=== PATIENT | male | born 1970 | race Caucasian/White ===

== ENCOUNTER 2017-01-21 11:18 | Observation (INO) | payer MEDICAID, OTHER ==
[~2017-01-21] VITALS: Ht 172.7 cm; Wt 77.1 kg
[2017-01-21] MEDS ORDERED: ASPIRIN 325 MG TAB PO STA (12:48)
[2017-01-21] MEDS ORDERED: NITROGLYCERIN (SL) 0.4 MG TAB SL PRN (13:00)
[2017-01-21 13:08] LABS: ADD SCAN DIFF NO
[2017-01-21 13:13] LABS: BASOPHIL # 0.1 10^3/ul (0.0-0.1); EOSINOPHILS # 0.3 10^3/ul (0.0-0.5); EOSINOPHILS % 4.7 % (0.0-7.0); HEMATOCRIT 44.9 % (42.0-52.0); HEMOGLOBIN 14.3 g/dl (14.0-18.0); LYMPHOCYTES # 1.6 10^3/ul (0.8-2.9); LYMPHOCYTES % 25.8 % (15.0-51.0); MEAN CORPUSCULAR HEMOGLOBIN 29.1 pg (29.0-33.0); MEAN CORPUSCULAR HGB CONC 31.8 g/dl (32.0-37.0); MEAN CORPUSCULAR VOLUME 91.3 fl (82.0-101.0); MEAN PLATELET VOLUME 11.2 fl (7.4-10.4); MONOCYTE # 0.5 10^3/ul (0.3-0.9); MONOCYTES % 8.4 % (0.0-11.0); NEUTROPHIL # 3.7 10^3/ul (1.6-7.5); NEUTROPHILS % 59.6 % (39.0-77.0); PLATELET COUNT 186 10^3/UL (140-415); RED BLOOD COUNT 4.92 10^6/ul (4.70-6.10); RED CELL DISTRIBUTION WIDTH 12.5 % (11.5-14.5); WHITE BLOOD COUNT 6.2 10^3/ul (4.8-10.8)
[2017-01-21 13:22] LABS: INR 0.94; PROTIME 12.6 Sec (12.2-14.2)
[2017-01-21 13:23] LABS: PARTIAL THROMBOPLASTIN TIME 30.8 Sec (25.0-35.0)
[2017-01-21 13:24] LABS: ALANINE AMINOTRANSFERASE 37 IU/L (13-69); ALBUMIN 4.8 g/dl (3.3-4.9); ALKALINE PHOSPHATASE 60 IU/L (42-121); ANION GAP 11 (8-16); ASPARTATE AMINO TRANSFERASE 26 IU/L (15-46); BILIRUBIN,INDIRECT 0.4 mg/dl (0-1.1); BILIRUBIN,TOTAL 0.4 mg/dl (0.2-1.3); BLOOD UREA NITROGEN 12 mg/dl (7-20); CALCIUM 9.8 mg/dl (8.4-10.2); CARBON DIOXIDE 30 mmol/L (21-31); CHLORIDE 103 mmol/L (97-110); CREATINE KINASE 119 IU/L (23-200); CREATININE 1.06 mg/dl (0.61-1.24); GLUCOSE 100 mg/dl (70-220); POTASSIUM 4.2 mmol/L (3.5-5.1); SODIUM 140 mmol/L (135-144)
[2017-01-21 13:36] LABS: B-TYPE NATRIURETIC PEPTIDE 15 PG/ML (0-125)
[2017-01-21 13:39] LABS: CK-MB 0.84 ng/ml (0.0-2.4); TROPONIN-I < 0.012 ng/ml (0.00-0.12)
--- NOTE | 2017-01-21 13:40 | RADRPT ---
PROCEDURE: Chest Radiograph. CLINICAL INDICATION: Chest pain. Shortness of breath. TECHNIQUE: Single frontal chest radiograph. COMPARISON: None available FINDINGS: The cardiomediastinal silhouette is within normal limits. No infiltrate or effusion is seen. Th e bones are intact. IMPRESSION: 1. Unremarkable chest radiograph. RPTAT: KK .Blayne Jensen MD, MD Date Time Electronically viewed and signed by .Blayne Jensen MD, on 01/21/2017 13:39 .B/
[2017-01-21 13:45] LABS: D-DIMER < 220.00 ng/ml (<460)
[2017-01-21] MEDS ORDERED: SOD CHLORIDE 0.9% 100 ML ONE (14:07)
[2017-01-21] MEDS ORDERED: IOHEXOL 100 ML ONE (14:07)
--- NOTE | 2017-01-21 14:46 | RADRPT ---
PROCEDURE: US DVT. CLINICAL INDICATION: Bilateral lower extremity pain and swelling. TECHNIQUE: Multiple longitudinal and transverse images of the bilateral lower extremity veins were obtained with ponce scale and color Doppler imaging. 2D grayscale measurements with compression, co katie Doppler flow, and augmentation was performed. The calf veins were interrogated as well. COMPARISON: No prior studies are available for comparison. FINDINGS: The bilateral common femoral, superficial femoral and popliteal veins are normally compressible thro ughout. Color flow demonstrates normal filling of the vessel. Normal waveforms are visualized and there is normal response to augmentation. The calf veins are visualized and are equally unremarkabl e. IMPRESSION: 1. No evidence of a deep vein thrombosis involving either lower extremity. RPTAT: QQ .Allie Duke MD, MD Date Time Electronically viewed and signed by .Allie Duke MD, MD on 01/21/2017 14:45 .N/
--- NOTE | 2017-01-21 14:51 | RADRPT ---
PROCEDURE: CTA Chest and pulmonary angiogram. CLINICAL INDICATION: Chest pain and shortness of breath. TECHNIQUE: CT scan of the chest and CT pulmonary angiogram was performed on a multidetector high-r esolution CT scanner. High-resolution thin slice coronal and sagittal imaging was obtained from the axial source images. 3-D volumetric rendered post processing was performed as well. The patient w as examined following the uncomplicated intravenous administration of 90 cc of Omnipaque-350. The i mages were reviewed on a PACS workstation. The total exam CTDI equals 16.9, 10.74 see and the total exam DLP equals 401.85 mGy-cm. COMPARISON: Chest radiograph of the same day. FINDINGS: CT chest: No focal opacification, effusion or pneumothorax is seen. The central tracheobronchial tree is ernestina r. Calcified hilar and mediastinal prevascular lymph nodes are noted which likely present sequela of pr ior granulomatous disease. No mediastinal mass is noted. The vascular structures of the mediastinum are normal in course and caliber. The heart size is normal without pericardial thickening or effusi on. The axillary, subpectoral, and supraclavicular regions are unremarkable. Imaging obtained through the upper abdomen demonstrate mild splenomegaly, otherwise no acute abnorma lity is noted. Small calcified foci are noted in the spleen. The osseous structures are remarkable for degenerative spondylosis of the spine. CT pulmonary angiogram: No filling defect is present to suggest pulmonary embolism. The pulmonary arteries are normal in alecia iber and morphology. IMPRESSION: 1. No evidence for pulmonary embolism. 2. Calcified hilar and mediastinal lymph nodes as well as small splenic calcifications and mild spl enomegaly which likely present sequela of prior granulomatous disease. 3. Otherwise no acute intrathoracic abnormality. RPTAT: QQ .Allie Duke MD, MD Date Time Electronically viewed and signed by .Allie Duke MD, MD on 01/21/2017 14:51 .N/
[2017-01-21] MEDS ORDERED: ONDANSETRON 4 MG INJ IV PRN ×2 (15:30→17:30)
[2017-01-21] MEDS ORDERED: ACETAMINOPHEN 325 MG TAB PO PRN ×2 (15:30→17:30)
--- NOTE | 2017-01-21 15:55 | ERA ---
ER Documentation Chief Complaint Date/Time DATE: 01/21/17 TIME: 15:50 Chief Complaint Complains of chest pain x 2 days HPI This is a very pleasant 46-year-old male with no past medical history that presents to the emergency department complaining of intermittent chest pain that is progressively worsened over the past 7 days. The patient states that the pain is a deep ache localized to the left chest wall with intermittent pinching-like sensation. He indicates that 24 hours prior to arrival the pain began to radiate to his left and right upper extremity but no involvement of his neck back or jaw. The patient indicates that 2 weeks ago he returned from a long flight in [place] that was roughly a 20 hour flight. He indicated he also had intermittent pain of his right calf that is present at rest and not exacerbated with ambulation and denies any recent trauma to his right lower extremity. He has had no fevers or shaking or chills. He has had intermittent shortness of breath at rest. He denies any swelling of his lower extremities. He states he does not smoke tobacco nor does he utilize any illicit drugs. He has no family history of coronary artery disease in his first-degree relatives less than 55 years of age. He has never had any similar pain in the past. He did not take any analgesic medication prior to arrival. ROS All systems reviewed and are negative except as per history of present illness. Medications Home Meds No Active Prescriptions or Reported Meds Allergies Allergies: Coded Allergies: No Known Allergy (Unverified , 01/21/17) PMhx/Soc Medical and Surgical Hx: pt denies Medical Hx, pt denies Surgical Hx Hx Alcohol Use: No Hx Substance Use: No Hx Tobacco Use: No Smoking Status: Current every day smoker Physical Exam Vitals Vital Signs Date Time Temp Pulse Resp B/P Pulse Ox O2 Delivery O2 Flow Rate FiO2 01/21/17 13:05 70 18 128/68 99 Room Air 01/21/17 11:23 98.3 75 20 132/70 98 Physical Exam Constitutional:Well-developed. Well-nourished. HEENT:Normocephalic. Atraumatic.Pupils were equal round reactive to light. Moist mucous membranes.No tonsillar exudates. Neck: No nuchal rigidity. No lymphadenopathy. No posterior cervical spine tenderness or step-offs. Respiratory: Not using accessory muscles of respiration.Lungs were clear to auscultation bilaterally. No rhonchi. No rales. No wheezing. Cardiovascular: Regular rate regular rhythm.No murmurs. No rubs were appreciated.S1, S2 normal. Distal pulses are palpable 2+ bilaterally. GI: Abdomen was soft. Nontender. Non Distended. No pulsatile abdominal masses or bruits. No rebound. No guarding. Bowel sounds were present and normal. Muscle skeletal: Full range of motion of both the upper and lower extremities bilaterally.Normal muscle tone. Tenderness of the right calf with no asymmetrical swelling. Homans sign negative bilaterally. Skin: No petechia, no purpura. No lesions on the palms or the soles of the feet. No maculopapular rash. NEURO: Patient was alert, awake, orientated x3.No facial droop. Gait observed and normal with no ataxia.Speech had regular rate and rhythm. No focal neurological deficits. Result Diagram: 01/21/17 1250 01/21/17 1250 Results 24 hrs Laboratory Tests Test 01/21/17 12:50 White Blood Count 6.210^3/ul Red Blood Count 4.9210^6/ul Hemoglobin 14.3g/dl Hematocrit 44.9% Mean Corpuscular Volume 91.3fl Mean Corpuscular Hemoglobin 29.1pg Mean Corpuscular Hemoglobin Concent 31.8g/dl Red Cell Distribution Width 12.5% Platelet Count 32932^3/UL Mean Platelet Volume 11.2fl Neutrophils % 59.6% Lymphocytes % 25.8% Monocytes % 8.4% Eosinophils % 4.7% Basophils % 1.0% Nucleated Red Blood Cells % 0.0/100WBC Neutrophils # 3.710^3/ul Lymphocytes # 1.610^3/ul Monocytes # 0.510^3/ul Eosinophils # 0.310^3/ul Basophils # 0.110^3/ul Nucleated Red Blood Cells # 0.010^3/ul Prothrombin Time 12.6Sec Prothrombin Time Ratio 1.0 INR International Normalized Ratio 0.94 Activated Partial Thromboplast Time 30.8Sec D-Dimer < 220.00ng/ml D-Dimer Comment Sodium Level 140mmol/L Potassium Level 4.2mmol/L Chloride Level 103mmol/L Carbon Dioxide Level 30mmol/L Anion Gap 11 Blood Urea Nitrogen 12mg/dl Creatinine 1.06mg/dl Glucose Level 100mg/dl Calcium Level 9.8mg/dl Total Bilirubin 0.4mg/dl Direct Bilirubin 0.00mg/dl Indirect Bilirubin 0.4mg/dl Aspartate Amino Transf (AST/SGOT) 26IU/L Alanine Aminotransferase (ALT/SGPT) 37IU/L Alkaline Phosphatase 60IU/L Creatine Kinase 119IU/L Creatine Kinase Index 0.7 Creatinine Kinase MB (Mass) 0.84ng/ml Troponin I < 0.012ng/ml B-Type Natriuretic Peptide 15PG/ML Total Protein 8.0g/dl Albumin 4.8g/dl Globulin 3.20g/dl Albumin/Globulin Ratio 1.50 Lipase 231U/L Current Medications Medications (Trade) Dose Ordered Sig/Maximiliano Route PRN Reason Start Time Stop Time Status Last Admin Dose Admin Aspirin (Aspirin) 325 mg ONCE STAT PO 01/21/17 12:48 01/21/17 12:50 DC 01/21/17 13:12 Nitroglycerin (Nitroglycerin (Sl Tab) 0.4 Mg) 1 tab Q5M UP TO 3 DOSES PRN SL CHEST PAIN 01/21/17 13:00 01/21/17 13:13 IV Flush 10 ml 10 ml STK-MED ONCE .ROUTE 01/21/17 14:07 01/21/17 14:08 DC 01/21/17 14:21 Sodium Chloride 100 ml @ ud STK-MED ONCE .ROUTE 01/21/17 14:07 01/21/17 14:08 DC 01/21/17 14:21 Iohexol (Omnipaque) 100 ml @ ud STK-MED ONCE .ROUTE 01/21/17 14:07 01/21/17 14:08 DC 01/21/17 14:22 Ondansetron HCl (Zofran Inj) 4 mg ER BRIDGE PRN IV NAUSEA AND/OR VOMITING 01/21/17 15:30 01/22/17 15:29 Acetaminophen (Tylenol Tab) 650 mg ER BRIDGE PRN PO MILD PAIN/FEVER 01/21/17 15:30 01/22/17 15:29 Procedures/MDM The patient presented to the emergency department with chest pain. My clinical evaluation and workup was to distinguish minor causes of chest pain from acute life threatening conditions such as myocardial infarction, pulmonary embolism, aortic dissection, esophageal rupture, cardiac tamponade. The patient was placed on a vegetable thinner and continuous pulse oximetry. IV access established by nursing staff. Patient was given 325 mg of aspirin p.o. 12 Lead EKG tracing ordered and reviewed by myself showed at 1126: Normal sinus rhythm of 68 bpm and no arrhythmia. VT interval normal. Inverted P waves in the inferior lead to 3 and aVF QRS duration normal. No ST segment elevation No ST segment depression. Q waves present in the inferior lead III and aVF 12 Lead EKG tracing ordered and reviewed by myself showed which was repeated at 1228: Normal sinus rhythm of 70 bpm and no arrhythmia. VT interval normal. P waves were no longer inverted. Q waves present in lead III and aVF QRS duration normal. No ST segment elevation No ST segment depression. No changes consistent with acute ischemia. I obtain venous duplex ultrasounds of the bilateral lower extremities which showed no evidence of a deep vein thrombosis. Given that the patient is a high pretest probability according to the well's criteria for pulmonary embolism, given his recent flight with prolonged immobilization and shortness of breath, obtained a CT scan of the chest which showed no evidence of a pulmonary embolism or aortic dissection The patient will be admitted for observation serious condition in order to further evaluate the etiology of the patient's chest pain. She will go to the hospitalist Dr. Haney. Departure Diagnosis: Primary Impression: Chest pain Qualified Code: R07.9 - Chest pain, unspecified type Additional Impression: Shortness of breath Condition: AKRRIE Jacobson January 21, 2017 15:55
[2017-01-21] MEDS ORDERED: MAGNESIUM HYDROXIDE 30ML CUP PO PRN (17:30)
[2017-01-21] MEDS ORDERED: LORAZEPAM 2 MG INJ IV PRN (17:30)
[2017-01-21] MEDS ORDERED: morphine 2 MG INJ IV PRN (17:30)
[2017-01-21] MEDS ORDERED: BISACODYL (EC) 5 MG TAB PO PRN (17:30)
[2017-01-21] MEDS ORDERED: NACL 0.9% 3 ML SYG IV SCH (17:30)
[2017-01-21] MEDS ORDERED: HYDROCODONE/APAP (5/325) TAB PO PRN (17:30)
--- NOTE | 2017-01-21 18:13 | HP ---
DATE OF ADMISSION: 01/21/2017 TIME OF EVALUATION: 1700. REASON FOR ADMISSION: Chest pain and dyspnea. CONSULTANTS: Dr. Brett East, Cardiology. HISTORY OF PRESENT ILLNESS: This is a 46-year-old male who denies any significant past medical history who presented to the emergency department complaining of chest pain that has been progressively getting worse over the past 2 to 3 days. As per the patient, he started having chest pain on , 01/17/2017, that has been progressively getting worse. The patient verbalized his chest pain as substernal, but occurring inside his chest with pain in bilateral shoulders and some associated dyspnea. The patient denied any associated nausea, vomiting, or diaphoresis. The patient was also complaining of occasional dyspnea. The patient denied any cough. He denied any paroxysmal nocturnal dyspnea or exertional dyspnea. The patient denied any alleviating or exacerbating factors for his chest pain. The patient recently flew to [place]. The patient was also complaining of right calf pain. The patient denied any prior history of heart disease. The patient has no family history of early heart disease. In the emergency room, the patient underwent extensive workup including a CT angiogram of the chest that was negative for any pulmonary embolism. The patient also had bilateral lower extremity venous Doppler study that was negative for any DVT. He was treated with a single dose of aspirin in the emergency room. PAST MEDICAL HISTORY: Denies. PAST SURGICAL HISTORY: Biopsy in the neck area when he was 9 years old. SOCIAL HISTORY: The patient lives at home. 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 Denies any history of tobacco or illicit drug use. (The ER physician 's notes say the patient is a current every day smoker). Occasional drinker. FAMILY HISTORY: Positive for heart disease, but not early heart disease. REVIEW OF SYSTEMS: A 12-point review of systems were made and the review of systems are negative other than what is mentioned in history of present illness. PHYSICAL EXAMINATION: VITAL SIGNS: Temperature 98.3, pulse rate 77, respiratory rate 19, blood pressure 102/68, oxygen saturation 96% on room air. GENERAL: This is a 46-year-old male lying in bed in no apparent distress. HEENT: Head normocephalic and atraumatic. Eyes: Anicteric sclerae. Conjunctivae clear. ENT: Nasal septum is midline. Oral mucosa is moist. NECK: Supple. No JVD noticed. RESPIRATORY: Bilaterally clear to auscultation. No adventitious breath sounds. No use of accessory muscles of respiration. CARDIAC: Regular rate and rhythm. S1, S2 heard. Chest pain not reproducible. ABDOMEN: Soft, nontender, and nondistended. Bowel sounds positive in all 4 quadrants. GENITOURINARY: Deferred. EXTREMITIES: No cyanosis, no clubbing, no edema. Peripheral pulses are palpable. NEUROLOGIC: The patient is awake, alert, and oriented. Cranial nerves are grossly intact. LABORATORY AND DIAGNOSTIC DATA: WBC 6.2, hemoglobin 14.3, hematocrit 44.9, platelet count 186. Sodium 140, potassium 4.2, chloride 103, carbon dioxide 30 , anion gap 11, BUN 12, creatinine 1.06, glucose 100, calcium 9.8. Total bilirubin 0.4, AST 26, ALT 30, alkaline phosphatase 60. Troponin I less than 0.012. PT 12.6, INR 0.94, aPTT 30.8. D-dimer less than 220. Chest x-ray: Unremarkable chest radiograph. Bilateral lower extremity venous Doppler study: Negative for any DVT. CT angiogram of the chest: No evidence for pulmonary embolism. Calcified hilar and mediastinal lymph nodes as well as small splenic calcifications and mild splenomegaly. This likely represents sequelae of prior granulomatous disease. Otherwise, no acute intrathoracic abnormality. IMPRESSION: This is a 46-year-old male who came to the emergency room with chest pain that has been going on for the past few days and has been getting worse who will be admitted here for further evaluation. ASSESSMENT AND PLAN: 1. Chest pain. To rule out acute coronary syndrome. The patient's chest pain sounds atypical. He has been ruled out for any underlying pulmonary embolism, provided the history of recent long flight. The patient will be evaluated by cardiology and he will be evaluated for any underlying acute coronary syndrome. A 2D echocardiogram will be obtained. Serial troponins will be obtained. Plan. The patient will be admitted to inpatient telemetry floor. The patient will be started on a regular diet. Activities will be as tolerated. The patient will be started on deep vein thrombosis prophylaxis and gastrointestinal prophylaxis. The patient will remain a FULL CODE. The rest of the patient's management will be based on the clinical course, the results of diagnostic studies, and inputs from consultants. Based on the patient's clinical presentation, he most probably requires at least 1 midnight's stay for further management and evaluation of his clinical presentation. The case and management of this patient was fully discussed with Dr. Dee. ANGEL DEE MD, AM/NATALIIA Conf#: [id number] DID#: [id number] MTDD
[2017-01-21 18:30] VITALS: TEMP 98.6
--- NOTE | 2017-01-21 18:36 | CONS ---
DATE OF ADMISSION: 01/21/2017 DATE OF CONSULTATION: 01/21/2017 REASON FOR CONSULTATION: Chest pain. CHIEF COMPLAINT: Chest pain. HISTORY OF PRESENT ILLNESS: Thank you for this referral. History obtained from the patient, julia bocanegra and review of the chart. This is a pleasant 46-year-old gentleman with no past cardiac history who presented ____. The patient has had chest pain, left-sided, over the past week. He could not explain ____. He said it started a few days ago after he was climbing up the escalator. It is gayathri p. It has a pressure component that lasts all of time. Anywhere from 4 to 7/10 in intensity. PAST MEDICAL HISTORY: None. SOCIAL HISTORY: The patient does not smoke or drink. FAMILY HISTORY: Patient's uncles have had bypass surgery in their older age. ALLERGIES: NO REPORTED ALLERGIES. MEDICATIONS AT HOME: None. REVIEW OF SYSTEMS: He denies ____ is normally very active and exercises. PHYSICAL EXAMINATION: VITAL SIGNS: Temperature is 98, heart rate of 77, blood pressure 102/68, respiration rate of 19, sa turating 96%. HEENT: Normocephalic, atraumatic. Appears to be in no acute distress or pain. Pupils equal, round . CARDIOVASCULAR: Regular rate and rhythm, systolic murmur. PULMONARY: With no wheezes, no rhonchi. GASTROINTESTINAL: Soft, nontender. EXTREMITIES: With no significant lower extremity edema. NEUROLOGIC: Awake and alert. PSYCHIATRIC: Calm, pleasant. ELECTROCARDIOGRAM: Personally reviewed. Two EKGs, one showed probably ectopic atrial rhythm with p ossible inferior infarct, age indeterminate, showed normal sinus rhythm with possible inferior infar ct, age undetermined, on personal review. CT pulmonary angiogram was done which shows no evidence o f pulmonary embolus, calcified hilar and mediastinal ____, as well as small splenic calcifications, mild splenomegaly which likely represented prior granulomatous disease with no acute intrathoracic a bnormality. Lower extremity ultrasound showed no evidence of DVT. ASSESSMENT AND PLAN: 1. Chest pain syndrome, rule acute coronary syndrome. 2. Rule out dyslipidemia. 3. Mildly abnormal EKG, cannot rule out old inferior infarct. RECOMMENDATIONS: We will rule out myocardial infarction. Exercise stress nuclear study will be don e tomorrow to rule out nonobstructive coronary artery disease. Dictated By: KIRIT WHITE MD AV/NATALIIA Conf#: [id number] DID#: [id number] CC: ANGEL ZHONG OVEN TECHNICIAN;*EndCC*
[2017-01-21 18:40] LABS: CREATINE KINASE 95 IU/L (23-200)
[2017-01-21 18:50] LABS: CK-MB 0.61 ng/ml (0.0-2.4)
[2017-01-21 18:52] LABS: TROPONIN-I < 0.012 ng/ml (0.00-0.12)
[2017-01-21] MEDS: FAMOTIDINE 20 MG TAB PO SCH (21:42)
[2017-01-21 22:24] LABS: BARBITURATES NEGATIVE (NEGATIVE); BENZODIAZEPINES NEGATIVE (NEGATIVE); CANNABINOIDS NEGATIVE (NEGATIVE); COCAINE NEGATIVE (NEGATIVE); OPIATES NEGATIVE (NEGATIVE)
[2017-01-22] VITALS (9 sets, daily range): BP systolic 99–122; BP diastolic 56–79; PULSE 56–77; RESP 19–22; Ht 172.7 cm; Wt 77.1 kg
[2017-01-22 07:21] LABS: ADD SCAN DIFF NO
[2017-01-22 07:38] LABS: BASOPHIL # 0.1 10^3/ul (0.0-0.1); BASOPHILS % 1.2 % (0.0-2.0); EOSINOPHILS # 0.3 10^3/ul (0.0-0.5); HEMATOCRIT 42.1 % (42.0-52.0); HEMOGLOBIN 13.6 g/dl (14.0-18.0); LYMPHOCYTES # 1.6 10^3/ul (0.8-2.9); LYMPHOCYTES % 30.8 % (15.0-51.0); MEAN CORPUSCULAR HEMOGLOBIN 29.4 pg (29.0-33.0); MEAN CORPUSCULAR HGB CONC 32.3 g/dl (32.0-37.0); MEAN CORPUSCULAR VOLUME 90.9 fl (82.0-101.0); MEAN PLATELET VOLUME 11.9 fl (7.4-10.4); MONOCYTE # 0.4 10^3/ul (0.3-0.9); MONOCYTES % 8.3 % (0.0-11.0); NEUTROPHIL # 2.8 10^3/ul (1.6-7.5); NEUTROPHILS % 54.1 % (39.0-77.0); PLATELET COUNT 173 10^3/UL (140-415); RED BLOOD COUNT 4.63 10^6/ul (4.70-6.10); RED CELL DISTRIBUTION WIDTH 12.6 % (11.5-14.5); WHITE BLOOD COUNT 5.2 10^3/ul (4.8-10.8)
[2017-01-22 07:45] LABS: CHOL/HDL RATIO 3.8 RATIO; CHOLESTEROL 237 mg/dl (100-200); CREATINE KINASE 80 IU/L (23-200); HDL CHOLESTEROL 62 mg/dl (27-67); MAGNESIUM 2.1 mg/dl (1.7-2.5); PHOSPHORUS 4.1 mg/dl (2.5-4.9); TRIGLYCERIDES 127 mg/dl (0-149)
[2017-01-22 07:47] LABS: ALBUMIN 4.2 g/dl (3.3-4.9); ALBUMIN/GLOBULIN RATIO 1.68; BILIRUBIN,INDIRECT 0.6 mg/dl (0-1.1); BILIRUBIN,TOTAL 0.6 mg/dl (0.2-1.3); CALCIUM 9.7 mg/dl (8.4-10.2); CREATININE 1.12 mg/dl (0.61-1.24); POTASSIUM 4.4 mmol/L (3.5-5.1); TOTAL PROTEIN 6.7 g/dl (6.1-8.1)
[2017-01-22 08:10] LABS: CK-MB 0.52 ng/ml (0.0-2.4); TROPONIN-I < 0.012 ng/ml (0.00-0.12)
[2017-01-22] MEDS ORDERED: ASPIRIN 81 MG TAB PO SCH (09:00)
[2017-01-22] MEDS ORDERED: ENOXAPARIN 40 MG/0.4 ML SYG SC SCH (09:00)
[2017-01-22] MEDS: FAMOTIDINE 20 MG TAB PO SCH (10:09)
--- NOTE | 2017-01-22 11:30 | PN ---
DATE: 01/22/2017 CARDIOLOGY FOLLOWUP SUBJECTIVE: There is minimal chest discomfort overnight nonexertional. No palpitation. MEDICATIONS: Reviewed. PHYSICAL EXAMINATION: VITAL SIGNS: Temperature 98, heart rate of 60, blood pressure 102/63, respiration rate 19, saturati ng 95%. HEENT: Normocephalic, atraumatic. No acute distress. Pupils are equal. CARDIOVASCULAR: Regular rate and rhythm. PULMONARY: With no wheezes and rhonchi. GASTROINTESTINAL: Soft, nontender. EXTREMITIES: No significant lower extremity edema. NEUROLOGIC: Awake and alert. PSYCHIATRIC: Very pleasant. LABORATORY: WBC of 5.2, hemoglobin 13.6, platelets of 173. Cholesterol 237, LDL of 150, HDL of 62. , potassium 4.4, creatinine 1.12, glucose of 89. Troponin negative x3. ASSESSMENT AND PLAN 1. Chest pain syndrome, rule out acute coronary syndrome. 2. Mildly abnormal EKG rhythm, but it does not appear to be causing any symptoms. 3. Dyslipidemia. 4. Possible anxiety. RECOMMENDATIONS: 1. Stress nuclear study was done today. Treadmill part was normal with excellent exercise toleranc e. 2. Awaiting nuclear imaging. Echocardiogram pending. Discharge planning if the nuclear stress rigo t is normal. Dictated By: KIRIT WHITE MD AV/NATALIIA Conf#: [id number] DID#: [id number] CC: ANGEL ZHONG FOREST LOGISTICS MANAGER;*EndCC*
--- NOTE | 2017-01-22 12:05 | RADRPT ---
PROCEDURE: Nuclear medicine myocardial stress and rest scan. CLINICAL INDICATION: Chest pain. TECHNIQUE: The patient was stressed with treadmill exercise. 10.6 mCi technetium 99m Tetrofosmin (Myoview) was administered rest. 30.4 mCi technetium 99m Tetrofosmin (Myoview) was administered du ring stress. Images were obtained and reconstructed in the short axis, horizontal long axis, and ve rtical long axis. Gated images were obtained and ejection fraction was calculated. COMPARISON: No prior study is available for comparison. FINDINGS: The stress and rest images demonstrate normal uptake throughout. There is no fixed abnormality or r eversible abnormality. There is no evidence of transient ischemic dilatation. Wall motion is normal. There is normal wall thickening during systole. Ejection fraction at stress is 61%. IMPRESSION: 1. No evidence of stress induced myocardial ischemia. 2. Ejection fraction at stress is 61%. RPTAT: QQ .Kaiden Cordon MD, MD Date Time Electronically viewed and signed by .Kaiden Cordon MD, on 01/22/2017 12:05 .R/
--- NOTE | 2017-01-22 12:43 | TMLRPT ---
DATE: 01/22/2017 EXERCISE STRESS NUCLEAR STUDY: INDICATION: Chest pain. DESCRIPTION: The patient was assessed on Yao protocol. Nuclear Images were performed as per prot ocol. 1. Baseline EKG showed rhythm. Otherwise no evidence of ischemia. 2. Heart rate baseline is 57, blood pressure 123/75. 3. Heart rate at peak of stress is 116, 95% of maximum predicted heart rate. 4. Patient exercised for 13 minutes on Yao protocol with about more than 14 mets. 5. Normal heart rate and blood pressure response. No evidence of ischemia on the EKG noted. 6. No significant other arrhythmia noted. CONCLUSION: 1. No indication of ischemia by EKG. 2. Excellent exercise tolerance. 3. See nuclear medicine result for final report. Dictated By: KIRIT ESTEBAN/NATALIIA Conf#: [id number] DID#: [id number]
--- NOTE | 2017-01-22 14:03 | PDOCDIS ---
Discharge Instructions DIAGNOSIS Discharge Diagnosis: Musculoskeletal chest pain. CONDITION Patient Condition: Good HOME CARE INSTRUCTIONS: Diet Instructions: Regular ACTIVITY: Activity Restrictions: No Restrictions FOLLOW UP/APPOINTMENTS Appointments primary care 1 week. JACKSON ARROYO MD, [facility] January 22, 2017 14:03
--- NOTE | 2017-01-22 14:35 | RADRPT ---
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 Physician: ANGEL ZHONG Quality: Adequate Procedures: Transthoracic echocardiogram with complete 2D, M-Mode, and doppler examination. Indications: Chest Pain. 2D/M Mode Doppler Measurement Value Normal Ranges Measurement Value Normal Ranges LVIDd 2D 4.2 3.5 - 5.6 cm DANEILA Vmax 2.0 cm2 LVIDs 2D 2.8 2.1 - 4.1 cm DANIELA VTI 2.0 cm2 LVPWd 2D 0.6 0.6 - 1.1 cm AV Peak Mariano 1.2 m/sec IVSd 2D 1.1 0.6 - 1.1 cm AV Peak PG 5.7 mmHg AoR Diam 2D 2.4 2.0 - 3.7 cm LVOT Peak Mariano 1.0 m/sec EDV 2D 80.5 cm3 LVOT Peak PG 4.3 mmHg ESV 2D 23.0 cm3 MV E Peak Mariano 0.5 m/sec LA Dimen 2D 3.1 2.3 - 4.0 cm MV A Peak Mariano 0.8 m/sec LVOT Diam 1.7 cm MV E/A 0.7 MV Decel Time 212 msec MV Decel [place] 3 MV E/A 0.7 TR Peak Mariano 1.9 m/sec TR Peak PG 14.1 mmHg RVSP 17.0 mmHg Findings Left Ventricle: Normal left ventricular systolic function. Normal left ventricular cavity size. Mild concentric left ventricular hypertrophy. Ejection fraction is visually estimated at 65 %. Tissue Doppler/Mitral Doppler indices are consistent with impaired relaxation (Stage I diastolic dysfunction). Right Ventricle: Normal right ventricular size. Normal right ventricular systolic function. Left Atrium: The left atrium is normal in size. Right Atrium: The right atrium is normal in size. Mitral Valve: Mitral valve leaflets appear mildly thickened. Mild mitral annular calcification. Trace mitral regurgitation. Aortic Valve: Normal appearance of the aortic valve. No significant aortic stenosis or insufficiency. Tricuspid Valve: Tricuspid valve not well visualized. Estimated peak PA systolic pressure 17 mmHg. There is trace tricuspid regurgitation. Pulmonic Valve: Pulmonic valve not well visualized. Pericardium: Normal pericardium with no significant pericardial effusion. Aorta: Normal aortic root. IVC: Normal size and normal respiratory collapse consistent with normal right atrial pressure. Conclusions 1.Normal left ventricular systolic function. Normal left ventricular cavity size. Mild concentric left ventricular hypertrophy. Ejection fraction is visually estimated at 65 %. Tissue Doppler/Mitral Doppler indices are consistent with impaired relaxation (Stage I diastolic dysfunction). 2.Mitral valve leaflets appear mildly thickened. Mild mitral annular calcification. Trace mitral regurgitation. 3.Normal appearance of the aortic valve. No significant aortic stenosis or insufficiency. 4.Tricuspid valve not well visualized. Estimated peak PA systolic pressure 17 mmHg. There is trace tricuspid regurgitation. Electronically Signed By: Brett East 22-Jan-2017 14:35:01 -0700 Patient Name: CAYDEN GAUTAM Study Date: 22-Jan-2017 [id number]
--- NOTE | 2017-01-22 18:09 | DS ---
DATE OF ADMISSION: 01/21/2017 DATE OF DISCHARGE: 01/22/2017 DISCHARGE DIAGNOSES: Musculoskeletal chest pain. HOSPITAL COURSE: This is a pleasant 46-year-old gentleman who presented with left-sided dull chest pain with radiation through to the back. No nausea, no vomiting, no hemoptysis, no hematemesis. No family history of coronary artery disease. Came in with initial EKG that was unremarkable for isch emia. Had a CT pulmonary angiogram that showed no evidence of pulmonary embolism. He did have calc ified hilar lymph nodes suggestive of prior granulomatous disease. Lower extremity Dopplers were ne gative for deep vein thrombosis. Stress test showed no evidence of myocardial ischemia. Ejection f raction was preserved. The patient was stable for discharge, as workup for pulmonary embolus and co ronary ischemia were negative. Likely the pain was musculoskeletal in origin. RECOMMENDATIONS: To take Aleve or ibuprofen for inflammatory pain and follow up with primary care [facility]. DIET: Regular. Dictated By: JACKSON ARROYO MD SV/NTS Conf#: [id number] DID#: [id number] CC: GATO DEE MD;*EndCC*
== END 2017-01-22 15:54 | disposition home or self-care (01) ==
LOC: E/R 11:18 → MS4 15:16
PROVIDERS: ADMIT Family Medicine; ATTEND Family Medicine
DX: R07.89 Other chest pain (principal); R94.39 Abnormal result of other cardiovascular function study; E78.5 Hyperlipidemia, unspecified
CPT/HCPCS: 71010; 71275; 78452; 80053; 80061; 80307; 82550; 82553; 83036; 83690; 83735; 83880; 84100; 84439; 84443; 84484; 85025; 85378; 85610; 85730; 93005; 93017; 93306; 93970; 96372; A9500; A9505; J1650; Q9967; Z7500; Z7502; Z7610; G0378